=== PATIENT | male | born 1980 | race Caucasian/White ===

== ENCOUNTER 2024-11-11 06:19 | Day surgery (SDC) | payer OTHER, SELFPAY | END 2024-11-11 12:12 | disposition home or self-care (01) | LOC: GI 06:19 | PROVIDERS: ATTENDING PHYSICIAN Internal Medicine Gastroenterology; FAMILY PHYSICIAN Internal Medicine | DX: Z12.11 Encounter for screening for malignant neoplasm of colon (principal); K63.5 Polyp of colon; K64.8 Other hemorrhoids | CPT/HCPCS: 45380; 88305 ==

== ENCOUNTER 2024-11-14 20:54 | Emergency (ER) | payer OTHER, SELFPAY ==
[2024-11-14 20:56] VITALS: BP 132/85
[2024-11-14 21:35] LABS: Hematocrit 45.2 % (39.0-52.0); Hemoglobin 15.9 g/dL (13.0-18.0); Mean Corp Hgb Conc. 35.2 g/dL (33.0-37.0); Mean Corpuscular Volume 81.9 fL (80.0-94.0); Nucleated Red Blood Cells % 0 % (-); Platelet Count 304 10^3/uL (130-400); Red Cell Dist. Width 12.4 % (11.5-14.5)
[2024-11-14 21:49] LABS: ALT (SGPT) 18 U/L (0-50); AST (SGOT) 21 U/L (17-59); Albumin 4.7 g/dl (3.5-5.0); Alkaline Phosphatase 40 U/L (38-126); Blood Urea Nitrogen 17 mg/dl (9-20); Calcium 9.5 mg/dl (8.4-10.2); Carbon Dioxide 25 mmol/L (22-30); Chloride 105 mmol/L (98-107); Glucose 99 mg/dl (70-99); Lipase 119 U/L (23-300); Potassium 3.8 mmol/L (3.5-5.1); Sodium 139 mmol/L (135-145); Total Protein 7.9 g/dl (6.3-8.2); eGFR > 60.00
[2024-11-14 21:59] VITALS: BP 109/73
[2024-11-14] MEDS: NSS 1000 IV (22:13)
[2024-11-14] MEDS: ZOFRAN 4 MG IV (22:14)
[2024-11-15] VITALS (7 sets, daily range): BP systolic 118–142; BP diastolic 69–85; PULSE 64–80
--- NOTE | 2024-11-15 02:16 | ED.GENMED ---
History of Present Illness
General
Chief Complaint: Fainting/Passed Out
Source: patient
Exam Limitations: none
Time Seen by Provider: 11/15/24 01:54
Nursing documentation reviewed up to this point in time: agreed with
History of Present Illness
History of Present Illness:
43-year-old male with past medical history of obesity presents to the on [place] presents to the ER today with concerns of syncopal episode following an episode of diarrhea. Patient reports that for the past 24 hours, he has had multiple episodes
of diarrhea as well as 2 episodes of vomiting. He denies current abdominal pain but states that he had crampy abdominal pain earlier. He had a light meal this evening of soup and a banana. Approximately 7:30 PM while resting in bed, he felt the
urge to have a bowel movement. When he got up to run to the bathroom he felt crampy abdominal pain and started to feel lightheaded. The next thing he recalls is waking up on the bathroom floor. His heard a bang on the floor and went to go
find him laying down. He appeared pale at the time but was quickly responsive to her question. Upon waking, he felt diaphoretic, had some mild dizziness and a slight headache currently he denies any of the symptoms. He denies any headache or neck
pain. He reports that he has been having persistent diarrhea still and multiple episodes of belching. He denies any recent antibiotics denies any bloody stools denies any travel outside of the country recently. He denies any past history of
syncopal episodes. He denies any cardiac history. He denies any sensation of palpitations
Review of Systems
Review of Systems
All Other Systems: ROS reviewed and negative except as documented in HPI and ROS
Phy Exam
Physical Exam
Physical Exam:
General: Patient is well appearing and in no acute distress; non-toxic
Skin: Warm and dry, no rashes or lesions
Head: Normocephalic, atraumatic
Eyes: Sclera non-icteric. EOMs intact.
Cardiac: Regular rate and rhythm, no murmurs, negative orthostatic vitals
Peripheral Vascular: No lower extremity swelling or edema
Pulm: Normal respiratory effort, no wheezes, rales
Abdomen: No abdominal tenderness to palpation, soft, no palpable abdominal mass
Neuro: CN II-XII intact, no focal neurologic deficits. Normal gait, sensation intact, normal [id number], [id number].
Psychiatric: Appropriate mood and affect.
Course
Orders/Labs/Results
Orders:
Orders
11/14/24 21:00
Electrocardiogram (*1) Urgent
Reason for Study: Syncope
EKG- Treatment ONCE
11/14/24 21:28
Complete Blood Count/With Diff Urgent
Comprehensive Metabolic Panel Urgent
Lipase Urgent
11/14/24 22:02
Ondansetron Injectable [Zofran] 4 mg .ROUTE .[facility]
11/14/24 22:12
0.9% Sodium Chloride 1000 ml [Nss] 1,000 ml IV BOLUS
11/14/24 22:13
Ondansetron Injectable [Zofran] 4 mg IV NOW STA
11/15/24 02:14
CT Head W/o Iv Contrast Urgent
Comment:
Reason For Exam: syncope and head strike
Orthostatic VS- Treatment ONCE
Famotidine [Pepcid] 20 mg IV NOW STA
Ondansetron Injectable [Zofran] 4 mg IV NOW STA
Abnormal Lab Results
11/14/24
21:28
Absolute Neuts (auto) 7.3 H 10^3/uL
(1.4-6.5)
Absolute Monos (auto) 0.8 H 10^3/uL
(0.1-0.6)
Lymphocytes % 20.0 L %
(20.5-51.1)
Total Bilirubin 3.1 H mg/dl
(0.2-1.3)
11/14/24 21:28
11/14/24 21:28
Vital Signs
Initial and Last Documented VS:
Initial Vital Signs
Temp Pulse Resp BP Pulse Ox
97.9 F 61 18 132/85 100
11/14/24 20:56 11/14/24 20:56 11/14/24 20:56 11/14/24 20:56 11/14/24 20:56
Last Documented Vital Signs
Temp Pulse Resp BP Pulse Ox
97.9 F 66 15 142/85 100
11/14/24 20:56 11/15/24 04:15 11/15/24 04:15 11/15/24 04:00 11/15/24 04:15
MDM/Problems Addressed
Differential Diagnosis Includes:
Differentials include orthostatic hypotension, vasovagal syncope, electrolyte derangement, cardiac arrhythmia, dehydration, gastroenteritis
MDM/Problems Addressed:
43-year-old male presents to the ER today with concerns of vomiting and diarrhea. He had a syncopal episode and fell and hit his head. He woke up and was quickly responsive and now feels well minimal headache. on physical exam he is
well-appearing in no acute distress. He has no focal neurodeficits. Heart regular rate and rhythm with no murmurs. He walks with a steady normal gait. Patient was given IV fluids, nausea medication, and Pepcid with improvement of his symptoms.
Labs reviewed, lipase normal. CMP remarkable for elevated total bilirubin. No concern for cholecystitis or biliary disease at this time no elevation of LFTs. Suspect possible [place]cer[place] [employer] syndrome, discussed follow-up with primary with repeat blood
work. Patient went for CT scan which was negative for any acute intracranial abnormality. Suspect vasovagal syncope secondary to acute diarrheal illness/bowel movement. Discussed follow-up with primary and consideration of stool cultures for
persistent symptoms. Patient expressed understanding. Patient stable for discharge. Did review telemetry which did not show any arrhythmia, EKG shows no ischemic changes does show sinus bradycardia with a rate of 50 but no evidence of heart block
*Pulse Oximetry
SaO2: 98
Oxygen Mode of Delivery: Room air
Patient hypoxic: no
*Critical Care Note
Total Time (30-74mins, 75-104mins- exclusive of procedures): Not Applicable
ED Attending Note
-
Portions of this chart may have been created with voice recognition software.� Occasional wrong word or��sound alike� substitutions may have occurred due to the inherent limitations of voice recognition software.
Discharge Plan
Departure
Patient Disposition: Home (Routine Discharge)
Date of Disposition: 11/15/24
Time of Disposition: 04:22
Patient with high blood pressure during this ER visit?: Yes
Condition: Good
Discharge Problem:
Vasovagal syncope, Gastroenteritis
Instructions: Viral gastroenteritis in adults, Syncope (fainting) (DC), BLOOD PRESSURE
Prescriptions:
New
ondansetron 4 mg tablet,disintegrating
4 mg PO Q4H PRN (Reason: nausea and vomiting) Qty: 10 0RF
Referrals:
Kev Leary MD [Family Provider, Internal Medicine]
Stand Alone Forms: Return to Work
Activity Restrictions/Additional Instructions:
Please continue to monitor your symptoms and follow-up with your primary care provider in 1 week. You can take Zofran as needed for vomiting and nausea. You can take 1 tablet every 4 hours. Please stick to a bland diet and eat small meals.
Please continue to monitor your symptoms. Please stay well-hydrated.
PLEASE RETURN TO THE ER SHOULD YOU DEVELOP CHEST PAIN, SHORTNESS OF BREATH, FURTHER SYNCOPAL EPISODES, INTRACTABLE NAUSEA OR VOMITING, AMBULATORY DYSFUNCTION, DIZZINESS, BLOODY STOOLS, ABDOMINAL PAIN, FEVER, OR ANY OTHER SIGNS OR SYMPTOMS WORRISOME
TO YOU.
Interventions
Interventions:
*Risk Screen - Suicide Last Done: 11/14/24 20:56
*General Assessment Last Done: 11/14/24 20:56
*Neglect/Abuse Screening Last Done: 11/14/24 20:56
*ED- Fall Risk Assessment Last Done: 11/15/24 01:12
*ED COVID-19 Vaccine History Last Done: 11/15/24 01:12
*Nursing Disposition Last Done: 11/15/24 04:33
ED- Cardiac Assessment Last Done: 11/15/24 01:12
ED- Neurological Assessment Last Done: 11/15/24 01:12
Discharge Date and Time
Discharge Date/Time: 11/15/24 04:47
Print Language: GERMAN
[2024-11-15] MEDS: ZOFRAN 4 MG IV (02:29)
[2024-11-15] MEDS: PEPCID 20 MG IV (02:30)
== END 2024-11-15 04:47 | disposition home or self-care (01) ==
LOC: EMR 20:54
PROVIDERS: Emergency Medicine; EMERGENCY PHYSICIAN Emergency Medicine; FAMILY PHYSICIAN Internal Medicine
DX: R55 Syncope and collapse (principal); K52.9 Noninfective gastroenteritis and colitis, unspecified; R03.0 Elevated blood-pressure reading, without diagnosis of hypertension; R00.1 Bradycardia, unspecified; E66.9 Obesity, unspecified
CPT/HCPCS: 99284; 96374; 96375; 96376; 96361; 70450; 80053; 83690; 85025; 93005